=== PATIENT | male | born 1995 | race African-American/Black ===

== ENCOUNTER 2019-05-06 21:24 | Emergency (ER) | payer OTHER ==
[~2019-05-06] VITALS: Wt 85.7 kg
== END 2019-05-07 00:26 | disposition home or self-care (01) ==
LOC: ED 21:24
DX: S01.112A Laceration without foreign body of left eyelid and periocular area, initial encounter (principal); Y08.89XA Assault by other specified means, initial encounter; Y93.89 Activity, other specified; Y92.89 Other specified places as the place of occurrence of the external cause; Y99.8 Other external cause status

== ENCOUNTER 2019-05-13 15:02 | Emergency (ER) | payer OTHER ==
[~2019-05-13] VITALS: Ht 180.3 cm; Wt 85.3 kg
== END 2019-05-13 15:49 | disposition home or self-care (01) ==
LOC: ED 15:02
DX: S01.112D Laceration without foreign body of left eyelid and periocular area, subsequent encounter (principal); Y08.89XD Assault by other specified means, subsequent encounter